=== PATIENT | male | born 1980 | race Caucasian/White ===

== ENCOUNTER 2022-10-19 08:04 | Outpatient (CLI) | payer OTHER, SELFPAY ==
[2022-10-19 14:53] LABS: SARS PCR* Negative SARS-CoV-2 (Negative)
[2022-10-19 18:22] LABS: Strep A DNA Probe* NOT DETECTED (Not Detectd)
== END 2022-10-19 08:05 | disposition home or self-care (01) ==
PROVIDERS: PCP Nurse Practitioner Family; Visit Provider Nurse Practitioner Family
DX: Z20.822 Contact with and (suspected) exposure to COVID-19 (principal); R05.9 Cough, unspecified; J06.9 Acute upper respiratory infection, unspecified
CPT/HCPCS: 87635; 87651